=== PATIENT | female | born 1980 | race Caucasian/White ===

== ENCOUNTER 2018-11-24 08:59 | Emergency (ER) | payer OTHER ==
[~2018-11-24] VITALS: Ht 157.5 cm; Wt 58.1 kg
[~2018-11-24 08:59] MED LIST: CIPRO500 MG PO; FLAGYL500MG PO; INTESTINEX1 CAP PO
== END 2018-11-24 14:28 | disposition home or self-care (01) ==
LOC: ER 08:59
DX: G43.509 Persistent migraine aura without cerebral infarction, not intractable, without status migrainosus (principal)